=== PATIENT | female | born 1980 | race Caucasian/White ===

== ENCOUNTER → 2016-10-26 | Outpatient (CLI) | payer OTHER | LOC: RAD 12:04 | DX: L40.0 Psoriasis vulgaris (principal); Z79.899 Other long term (current) drug therapy ==

== ENCOUNTER → 2018-03-09 | Outpatient (CLI) | payer OTHER | LOC: RAD 11:04 | DX: L40.0 Psoriasis vulgaris (principal); Z79.899 Other long term (current) drug therapy ==